=== PATIENT | male | born 1950 | race Caucasian/White ===

== ENCOUNTER 2018-08-15 06:44 | Day surgery (SDC) | payer OTHER ==
[2018-08-12 16:58] VITALS: BMI 39.9
[2018-08-15] MEDS ORDERED: LIDOCAINE HCL 2% 100 MG/5 ML DISP.SYRIN ONE (09:40)
[2018-08-15] MEDS ORDERED: PROPOFOL 20 ML ONE ×2 (09:40)
[2018-08-15] MEDS ORDERED: ePHEDrine SULFATE 50 MG/1 ML AMPULE ONE (09:40)
[2018-08-15] MEDS ORDERED: MIDAZOLAM HCL 2 MG/2 ML SINGLE DOSE VIAL ONE (09:41)
[2018-08-15] MEDS ORDERED: PHENYLEPHRINE HCL 10 MG/1 ML SINGLE DOSE VIAL ONE (09:41)
[2018-08-15] MEDS ORDERED: SODIUM CHLORIDE 0.9% P/F 10 ML VIAL IJ ONE (09:41)
[2018-08-15] MEDS ORDERED: SUCCINYLCHOLINE CHLORIDE 200 MG/10 ML VIAL ONE (09:41)
--- NOTE | 2018-08-15 10:04 | DS ---
Physical Examination Vital Signs: Vital Signs Temperature 98.4 F 08/15/18 07:17 Pulse Rate 77 08/15/18 07:17 Respiratory Rate 18 08/15/18 07:17 Blood Pressure 118/74 08/15/18 07:17 O2 Sat by Pulse Oximetry (%) 98 08/15/18 07:17 Discharge Summary Reason For Visit: ARTHROFIBROSIS LEFT KNEE Condition: Good - Instructions Diet, Activity, Other Instructions: Move the knee as much as tolerated. You do not need a walker, but you can use one if you want to. Start your PT over the next few days. Return and see me in the office in 1 month. Disposition: HOME - Home Medications Comprehensive Discharge Medication List: Ambulatory Orders Aspirin [Aspirin EC] 81 mg PO DAILY 08/12/18 Atorvastatin Ca [Lipitor] 40 mg PO HS 08/12/18 Ezetimibe 10 mg PO DAILY 08/12/18 Famotidine 20 mg PO BID 08/12/18 Furosemide 80 mg PO BID 08/12/18 Levothyroxine Sodium 137 mcg PO DAILY 08/12/18 Metoprolol Succinate 200 mg PO DAILY 08/12/18 Potassium Chloride [Klor-Con 10] 10 meq PO DAILY 08/12/18 Warfarin Sodium 3 mg PO DAILY 08/12/18
--- NOTE | 2018-08-15 10:04 | OP ---
Operative Note - Note: Operative Date: 08/15/18 Pre-Operative Diagnosis: Left knee stiffness s/p TKR Operation: DIONISIO Left knee Post-Operative Diagnosis: Same as Pre-op Surgeon: Brent Sears Anesthesia: General Operative Report Dictated: Yes
[2018-08-15 11:39] VITALS: BP 125/67; PULSE 74; TEMP 98
== END 2018-08-15 11:35 | disposition home or self-care (01) ==
LOC: FASU 06:44
PROVIDERS: ATTEND Orthopaedic Surgery
PROC: 0SNDXZZ Release Left Knee Joint, External Approach (ICD-10-PCS; principal; 2018-08-15 09:52)
DX: M24.662 Ankylosis, left knee (principal)
CPT/HCPCS: 94760